=== PATIENT | female | born 1955 | race Caucasian/White ===

== ENCOUNTER 2021-08-12 15:27 | Outpatient (CLI) | payer OTHER, SELFPAY ==
--- NOTE | 2021-08-12 15:36 | XR_ITS ---
WS: [id number] DEXA (DUAL ENERGY X-RAY ABSORPTIOMETRY) Bone mineral density was performed using a [employer] machine. HISTORY: FAMILY HISTORY OF OSTEOPOROSIS COMPARISON: None available. Lumbar spine BMD (L1-L4): 0.973 g/cm2 T score: -1.7 Z score: -1.2 Total hip BMD: Left: 0.992 g/cm2. T score: -0.1 Z score: 0.3 Right: 1.044 g/cm2. T score: 0.3 Z score: 0.7 10 year probability of a major osteoporotic fracture is 9%. XR/XR DEXA axial skeleton* 97877 IMPRESSION: OSTEOPENIA based upon the WHO classification for females.
== END 2021-08-12 15:28 | disposition home or self-care (01) ==
PROVIDERS: Visit Provider Family Medicine
DX: M85.80 Other specified disorders of bone density and structure, unspecified site (principal); Z82.62 Family history of osteoporosis
CPT/HCPCS: 77080

== ENCOUNTER 2023-02-17 11:53 | Outpatient (CLI) | payer MEDICARE, SELFPAY ==
--- NOTE | 2023-02-17 12:03 | MM_ITS ---
WS: [id number] Bilateral screening 3D tomosynthesis digital mammogram, 02/17/2023 Clinical Data: SCREENING Comparison: 09/20/2018, 03/22/2016, 09/21/2012, 07/21/2009, 08/15/2007. Findings: The breast parenchymal pattern shows heterogeneous density. No spiculated masses or clustered calcifi cations are seen. There are no secondary signs of carcinoma. There are scattered benign calcification s in both breasts. MM/[place] [id number] Impression: 1. Negative bilateral mammogram unchanged. 2. Recommend annual screening mammograms. BIRADS: 1-Negative FOLLOW UP: 1 Year Follow-up The CAD mold checker was used.
== END 2023-02-17 11:54 | disposition home or self-care (01) ==
PROVIDERS: PCP Family Medicine; Visit Provider Family Medicine
DX: Z12.31 Encounter for screening mammogram for malignant neoplasm of breast (principal)
CPT/HCPCS: 77063; 77067